=== PATIENT | female | born 1990 | race American Indian/Alaskan Native ===

== ENCOUNTER 2019-08-23 16:00 | Observation (INO) | payer MEDICAID ==
--- NOTE | 2019-08-23 16:22 | Emergency Department Report ---
Blank Doc - Documentation Documentation: 29-year-old female that presents with headache and HTN. Stated nor mal B/P at home is 116s/70s. This initial assessment/diagnostic orders/clinical plan/treatment(s) is/are subject to change based on patient's health status, clinical progression and re- assessment by fellow clinical providers in the ED. Further treatment and workup at subsequent clinical providers discretion. Patient/guardians urged not to elope from the ED as their condition may be serious if not clinically assessed and managed. Initial orders include: 1- Patient sent to MAIN ED for further evaluation and treatment 2- labs 3- UA
[2019-08-23] MEDS ORDERED: MAGNESIUM SULFATE 4 GM/100 ML BAG IV ONE ×3 (16:34→20:22)
[2019-08-23 16:35] LABS: Basophils # (Auto) 0.1 K/mm3 (0.0-0.1); Basophils % (Auto) 0.9 % (0.0-1.8); Eosinophils # (Auto) 0.2 K/mm3 (0.0-0.4); Eosinophils % (Auto) 2.3 % (0.0-4.3); Hematocrit 27.9 % (30.3-42.9); Hemoglobin 9.1 gm/dl (10.1-14.3); Lymphocytes # (Auto) 1.6 K/mm3 (1.2-5.4); Lymphocytes % (Auto) 16.6 % (13.4-35.0); Mean Corpuscular HGB Conc 33 % (30-34); Mean Corpuscular Volume 75 fl (79-97); Monocytes # (Auto) 0.6 K/mm3 (0.0-0.8); Monocytes % (Auto) 6.5 % (0.0-7.3); Platelet Count 225 K/mm3 (140-440); Red Blood Count 3.74 M/mm3 (3.65-5.03); Red Cell Distribution Width 19.3 % (13.2-15.2)
--- NOTE | 2019-08-23 16:39 | Emergency Department Report ---
ED Shortness of Breath HPI - General Chief Complaint: Dyspnea/Respdistress Stated Complaint: 3 DAYS AGO GAVE /CHEST PAIN Time Seen by Provider: 08/23/19 16:06 Source: patient Mode of arrival: Ambulatory Limitations: No Limitations - History of Present Illness Initial Comments: Patient is a 29-year-old female that presents emergency room with complaints of headache, blurred vision, shortness of breath, chest pain and bilateral lower extremity swelling. Patient states she is day 3. Patient states she had a baby 3 days ago at [place]. Patient states that towards the end of her she started having high blood pressure and leg swelling. Patient states she never took medications for her blood pressure during her . Patient states her chest pain is a 8 out of 10. Patient states it's worse with exertion and better with rest. Patient states her headache is an 8 out of 10. Patient states her headache is better with rest and worse with movement. Patient states her shortness of breath is better with rest and worse with exertion. MD Complaint: shortness of breath, chest pain -: Sudden - Related Data Allergies Allergy/AdvReac Type Severity Reaction Status Date / Time No Known Allergies Allergy Verified 08/23/19 16:36 ED Review of Systems ROS: Stated complaint: 3 DAYS AGO GAVE /CHEST PAIN Other details as noted in HPI Constitutional: denies: chills, fever Eyes: vision change. denies: eye pain, eye discharge ENT: denies: ear pain, throat pain Respiratory: shortness of breath. denies: cough, wheezing Cardiovascular: chest pain, edema. denies: palpitations Endocrine: no symptoms reported Gastrointestinal: denies: abdominal pain, nausea, diarrhea Genitourinary: denies: urgency, dysuria, discharge Musculoskeletal: denies: back pain, joint swelling, arthralgia Skin: denies: rash, lesions Neurological: headache. denies: weakness, paresthesias Psychiatric: denies: anxiety, depression Hematological/Lymphatic: denies: easy bleeding, easy bruising ED Past Medical Hx - Past Medical History Previous Medical History?: No - Surgical History Past Surgical History?: No - Family History Family history: no significant - Social History Smoking Status: Never Smoker Substance Use Type: None ED Physical Exam - General Limitations: No Limitations General appearance: alert, in no apparent distress - Head Head exam: Present: atraumatic, normocephalic - Eye Eye exam: Present: normal appearance, PERRL Pupils: Present: normal accommodation - ENT ENT exam: Present: mucous membranes moist - Neck Neck exam: Present: normal inspection - Respiratory Respiratory exam: Present: normal lung sounds bilaterally. Absent: respiratory distress - Cardiovascular Cardiovascular Exam: Present: regular rate, normal rhythm. Absent: systolic murmur, diastolic murmur, rubs, gallop - GI/Abdominal GI/Abdominal exam: Present: soft, normal bowel sounds - Extremities Exam Extremities exam: Present: normal inspection - Back Exam Back exam: Present: normal inspection - Neurological Exam Neurological exam: Present: alert, oriented X3 - Psychiatric Psychiatric exam: Present: normal affect, normal mood - Skin Skin exam: Present: warm, dry, intact, normal color. Absent: rash ED Course Vital Signs 08/23/19 08/23/19 08/23/19 16:22 17:01 18:00 Temperature 98.2 F Pulse Rate 79 68 62 Respiratory 18 22 13 Rate Blood Pressure 141/64 129/68 133/74 O2 Sat by Pulse 100 98 99 Oximetry 08/23/19 08/23/19 08/23/19 19:00 19:30 20:01 Temperature Pulse Rate 91 H 67 61 Respiratory 21 15 10 L Rate Blood Pressure 155/83 140/83 134/90 O2 Sat by Pulse 99 99 99 Oximetry 08/23/19 08/23/19 08/23/19 20:39 21:05 21:30 Temperature Pulse Rate 66 Respiratory 18 Rate Blood Pressure 134/90 134/90 131/78 O2 Sat by Pulse 90 100 Oximetry 08/23/19 22:00 Temperature Pulse Rate 92 H Respiratory 20 Rate Blood Pressure 138/65 O2 Sat by Pulse 100 Oximetry - Reevaluation(s) Reevaluation #1: Initial evaluation done. Based on patient's blood pressure and symptoms patient will be placed on mag for preeclampsia. 08/23/19 16:15 Reevaluation #2: pt states her headache is better. Patient states that her visual changes are better. Patient states her chest pain and shortness of breath improved. I discussed plan of care with patient. Patient agrees with plan of care. Patient will be admitted to the [facility] service. Patient agrees with admission. 08/23/19 18:30 - Consultations Consultation #1: CHRONOM[facility]ER AD[facility]ER consult. Dr. Garland has accepted the patient to be admitted to mother baby. [facility] orders place. 08/23/19 18:50 ED Medical Decision Making - Lab Data Result diagrams: 08/23/19 16:24 08/23/19 16:24 - EKG Data -: EKG Interpreted by Me EKG shows normal: sinus rhythm, axis, intervals, QRS complexes, ST-T waves Rate: normal - Radiology Data Radiology results: report reviewed, image reviewed interpreted by me: Negative chest x-ray. Head CT is negative for acute findings. - Medical Decision Making Patient is a 29-year-old female Emergency room with complaints of headache, blurry vision, chest pain, shortness of breath and elevated blood pressure. Patient states she is 3 days ago. Patient states she was preeclamptic during and her blood pressure and eclampsia symptoms have resolved with delivery. Patient states today she started having headache and chest pain and shortness of breath as well as noticed her blood pressure was higher than normal and blurry vision. Patient states she is not on a blood pressure medications. Patient states that her blood pressure was around 100. Patient placed on magnesium immediately for possible preeclampsia. Patient admitted to the [facility] service. Patient's labs unremarkable. Patient's head CT negative. Patient's chest x-ray negative. Patient's EKG negative. - Differential Diagnosis Preeclampsia. High blood pressure. Headache. Blurry vision. Critical Care Time: Yes Critical care time in (mins) excluding proc time.: 35 Critical care attestation.: If time is entered above; I have spent that time in minutes in the direct care of this critically ill patient, excluding procedure time. Critical Care Time: 35 minutes ED Disposition Clinical Impression: Preeclampsia in period, SOB (shortness of breath), Lower extremity edema, Blurred vision Chest pain Qualifiers: Chest pain type: unspecified Qualified Code(s): R07.9 - Chest pain, unspecified Headache Qualifiers: Headache type: unspecified Headache chronicity pattern: acute headache Intractability: not intractable Qualified Code(s): R51 - Headache Disposition: 09 OP ADMIT IP TO THIS HOSP Is pt being admited?: Yes Does the pt Need Aspirin: No Condition: Critical Time of Disposition: 18:57
[2019-08-23 16:50] LABS: Alanine Aminotransferase 12 units/L (7-56); Albumin 3.5 g/dL (3.9-5); BUN/Creatinine Ratio 10; Blood Urea Nitrogen 6 mg/dL (7-17); Calcium 8.8 mg/dL (8.4-10.2); Hemolysis Index 0
[2019-08-23 17:10] LABS: Creatine Kinase MB 1.3 ng/mL (0.0-4.0)
--- NOTE | 2019-08-23 17:11 | XRay Report ---
CHEST 1 VIEW 08/23/2019 4:46 PM INDICATION / CLINICAL INFORMATION: Shortness of breath and chest pain. COMPARISON: None available. FINDINGS: SUPPORT DEVICES: None. HEART / MEDIASTINUM: No significant abnormality. LUNGS / PLEURA: No significant pulmonary or pleural abnormality. No pneumothorax. ADDITIONAL FINDINGS: No significant additional findings. IMPRESSION: 1. No acute findings. Signer Name: Devonte Vines MD Signed: 08/23/2019 5:06 PM Workstation Name: [id number]
--- NOTE | 2019-08-23 18:08 | Cat Scan Report ---
CT head/brain wo con INDICATION / CLINICAL INFORMATION: 29 years Female; MAIN: lopez X 1 DAY POST . TECHNIQUE: Routine CT head without contrast. All CT scans at this location are performed using CT dos e reduction for ALARA by means of automated exposure control. COMPARISON: None. FINDINGS: BRAIN / INTRACRANIAL CONTENTS: No intracerebral hemorrhage or subarachnoid hemorrhage. Head matter wh ite matter junction is normal. I do not see patchy cortical/subcortical hypodensities in the parieto- occipital lobes are in the border zones (seen in the posterior reversible encephalopathy syndrome). D ural venous sinuses appear normal. Pituitary gland is normal. Visualized portions of the paranasal sinuses, mastoid air cells are normal. No acute hemorrhage, mass effect, midline shift, hydrocephalus, or acute, large territorial infarct. No chronic infarct or focal atrophy. Normal brain volume and ventricular/sulcal size for age. No sig nificant white matter abnormality. CRANIOCERVICAL JUNCTION: No significant abnormality. ORBITS: No significant abnormality of visualized orbits. SINUSES / MASTOIDS: No significant abnormality of the visualized paranasal sinuses or mastoid air tanya ls. ADDITIONAL FINDINGS: None. IMPRESSION: Normal nonenhanced CT scan of the brain. Signer Name: Mario Lilly MD Signed: 08/23/2019 6:04 PM Workstation Name: [email or web address]
[2019-08-23] MEDS ORDERED: ACETAMINOPHEN 325 MG TAB PO PRN (20:57)
[2019-08-23] MEDS ORDERED: diphenhydrAMINE 25 MG CAP PO PRN (20:57)
[2019-08-23] MEDS ORDERED: PROMETHAZINE 25 MG RECT SUPP PR PRN (20:57)
[2019-08-23] MEDS ORDERED: HYDROcodone/ACETAMINOPHEN 5-325 MG TAB PO PRN (20:57)
[2019-08-23] MEDS ORDERED: LANOLIN/ZINC/DIMETHICONE (LANSINOH) 7 GM TP PRN (20:57)
[2019-08-23] MEDS ORDERED: ONDANSETRON 4 MG/2 ML INJ IV PRN (20:57)
[2019-08-23] MEDS ORDERED: WITCH HAZEL/ GLYCERIN PAD TP PRN (20:57)
[2019-08-23] MEDS ORDERED: PROMETHAZINE 25 MG TAB PO PRN (20:57)
[2019-08-23] MEDS ORDERED: MAGNESIUM HYDROXIDE (MOM) ORAL LIQD UDC PO PRN (20:57)
[2019-08-23] MEDS ORDERED: IBUPROFEN 600 MG TAB PO SCH (21:00)
[2019-08-23] MEDS ORDERED: METOCLOPRAMIDE 10 MG/2 ML INJ IV PRN (21:03)
[2019-08-23] MEDS ORDERED: IBUPROFEN 600 MG TAB PO ONE (21:16)
--- NOTE | 2019-08-23 23:11 | Progress Note ---
Subjective - Subjective Date of service: 08/23/19 Interval history: Patient admitted for preeclampsia She wants to go home, I have indicated she would have to sign out AMA Preeclampsia/Eclampsia precautions discussed Patient to follow up in my office at [facility] on Saturday. Selena Garland MD Objective - Vital Signs Vital Signs: Vital Signs - 12hr 08/23/19 08/23/19 08/23/19 16:22 17:01 18:00 Temperature 98.2 F Pulse Rate 79 68 62 Respiratory 18 22 13 Rate Blood Pressure 141/64 129/68 133/74 O2 Sat by Pulse 100 98 99 Oximetry 08/23/19 08/23/19 08/23/19 19:00 19:30 20:01 Temperature Pulse Rate 91 H 67 61 Respiratory 21 15 10 L Rate Blood Pressure 155/83 140/83 134/90 O2 Sat by Pulse 99 99 99 Oximetry 08/23/19 08/23/19 08/23/19 20:39 21:05 21:30 Temperature Pulse Rate 66 Respiratory 18 Rate Blood Pressure 134/90 134/90 131/78 O2 Sat by Pulse 90 100 Oximetry 08/23/19 08/23/19 08/23/19 22:00 22:45 22:53 Temperature 98.2 F Pulse Rate 92 H 92 H 72 Respiratory 20 20 Rate Blood Pressure 138/65 118/56 O2 Sat by Pulse 100 100 Oximetry - Labs Labs: Abnormal Labs 08/23/19 08/23/19 16:24 16:24 Hgb 9.1 L Hct 27.9 L MCV 75 L MCH 24 L RDW 19.3 H Seg Neutrophils % 73.7 H Potassium 3.4 L BUN 6 L Creatinine 0.6 L Albumin 3.5 L Laboratory Results - last 24 hr 08/23/19 08/23/19 08/23/19 16:24 16:24 16:44 WBC 9.8 RBC 3.74 Hgb 9.1 L Hct 27.9 L MCV 75 L MCH 24 L MCHC 33 RDW 19.3 H Plt Count 225 Lymph % (Auto) 16.6 Starke % (Auto) 6.5 Eos % (Auto) 2.3 Baso % (Auto) 0.9 Lymph # 1.6 Starke # 0.6 Eos # 0.2 Baso # 0.1 Seg Neutrophils % 73.7 H Seg Neutrophils # 7.2 Sodium 141 Potassium 3.4 L Chloride 105.0 Carbon Dioxide 22 Anion Gap 17 BUN 6 L Creatinine 0.6 L Estimated GFR > 60 BUN/Creatinine Ratio 10 Glucose 89 Calcium 8.8 Total Bilirubin 0.20 AST 14 ALT 12 Alkaline Phosphatase 107 Total Creatine Kinase 74 CK-MB (CK-2) 1.3 CK-MB (CK-2) Rel Index 1.7 Troponin T < 0.010 NT-Pro-B Natriuret Pep Total Protein 6.4 Albumin 3.5 L Albumin/Globulin Ratio 1.2 08/23/19 16:44 WBC RBC Hgb Hct MCV MCH MCHC RDW Plt Count Lymph % (Auto) Starke % (Auto) Eos % (Auto) Baso % (Auto) Lymph # Starke # Eos # Baso # Seg Neutrophils % Seg Neutrophils # Sodium Potassium Chloride Carbon Dioxide Anion Gap BUN Creatinine Estimated GFR BUN/Creatinine Ratio Glucose Calcium Total Bilirubin AST ALT Alkaline Phosphatase Total Creatine Kinase CK-MB (CK-2) CK-MB (CK-2) Rel Index Troponin T NT-Pro-B Natriuret Pep 270.7 Total Protein Albumin Albumin/Globulin Ratio
--- NOTE | 2019-08-23 23:37 | History and Physical Report ---
History of Present Illness Date of examination: 08/23/19 Date of admission: 08/23/19 18:44 Chief complaint: Sent from ED for admission to L&D for preeclampsia. Orders have been put in by Dr. Garland. requests CNM to see patient for H&P. History of present illness: 29 year old was sent to L&D from ED due to elevated blood pressure and diagnosis of preeclampsia by ED doctor. Patient delivered her baby vaginally at [facility] on 08/19/19 (EDC was 08/17/19). Patient states she had a 7 lb. 13 oz. female infant with 1st degree lacerations which were repaired at the time of . Patient reports her lochia has been moderate to light since . She reports normal bowel and bladder function and normal appetite. She denies depression. Patient states she developed a headache with visual disturbance and chest pain/shortness of breath this evening and came in through the ED. In the ED she was diagnosed with preeclampsia and received Magnesium Sulfate; after that she was transferred to L&D. Orders have been put in by Dr. Garland. I went in to see patient and she was already signing out AMA right after she arrived on L&D unit. Patient denies headache, visual disturbance, nausea or vomiting, abdominal or epigastric pain at this time. Patient states the chest pain she felt in the ED has nearly resolved and is now 3/10 on pain scale and is only felt if she lies flat on her back. Patient denies shortness of breath; she denies leg pain. She reports swelling in both legs but denies any generalized edema. Patient is signing out AMA as I came in room to do her H&P. Advised patient re: risks of signing out AMA, warning signs to return for, and assured her that she can come back for care at any time. Advised her she needs to follow up with Dr. Garland this week in the office as she states she has already planned to do. Past History Past Medical History: other (heart murmur, obesity, recent at [facility] (08/19/19).) Past Surgical History: no surgical history MANAGER PRODUCE History: denies: chlamydia, gonorrhea, hepatitis B, hepatitis C, herpes, HIV, syphilis Family/Genetic History: stroke, other (aneurysm: several family members) Social history: lives with family, full code. denies: smoking, alcohol abuse, prescription drug abuse, IV drug use Medications and Allergies Allergies Allergy/AdvReac Type Severity Reaction Status Date / Time No Known Allergies Allergy Verified 08/23/19 16:36 Active Meds: Active Medications Acetaminophen (Tylenol) 650 mg PO Q4H PRN PRN Reason: Pain MILD(1-3)/Fever >100.5/[place] Acetaminophen/Hydrocodone Bitart (Goshen 5/325) 2 each PO Q6H PRN PRN Reason: Pain, Moderate (4-6) Bisacodyl (Dulcolax) 10 mg WV BID PRN PRN Reason: Constipation Diphenhydramine HCl (Benadryl) 25 mg PO Q6H PRN PRN Reason: Itching Ibuprofen (Ibuprofen) 600 mg PO Q6H SURYA Last Admin: 08/23/19 21:16 Dose: 600 mg Documented by: Magnesium Hydroxide (Milk Of Magnesia) 30 ml PO HS PRN PRN Reason: Constipation Metoclopramide HCl (Reglan) 10 mg IV Q6H PRN PRN Reason: Indigestion Multi-Ingredient Ointment (Lansinoh) 1 applic TP PRN PRN PRN Reason: Sore Nipples Ondansetron HCl (Zofran) 4 mg IV Q8H PRN PRN Reason: Nausea And Vomiting Promethazine HCl (Phenergan) 25 mg WV Q6H PRN PRN Reason: Nausea And Vomiting Promethazine HCl (Phenergan) 25 mg PO Q6H PRN PRN Reason: Nausea And Vomiting Sodium Chloride (Sodium Chloride Flush Syringe 10 Ml) 10 ml IV PRN NR Stop: 08/24/19 20:59 Witch Elissa/Glycerin (Tucks Pad) 1 each TP PRN PRN PRN Reason: Hemorrhoid/cleansing/soothing Review of Systems All systems: negative (chest pain, shortness of breath (resolved), headache (resolved), visual disturbance (resolved), bilateral lower extremity swelling) - Vital Signs Vital signs: Vital Signs Temp Pulse Resp BP Pulse Ox 98.2 F 79 18 141/64 100 08/23/19 16:22 08/23/19 16:22 08/23/19 16:22 08/23/19 16:22 08/23/19 16:22 Temp Pulse Resp BP Pulse Ox 98.2 F 72 20 118/56 100 08/23/19 22:45 08/23/19 22:53 08/23/19 22:45 08/23/19 22:53 08/23/19 22:45 - Physical Exam Cardiovascular: Regular rate, Normal S1, Normal S2, Other (murmur heard) Lungs: Positive: Clear to auscultation Abdomen: Positive: normal appearance, soft. Negative: distention, tenderness, guarding, rigidity Uterus: Positive: enlarged, other (fundus firm and midline; normal involution). Negative: tender Extremities: Positive: edema (mild edema of bilateral lower extremities, L=R, negative Wally's sign bilaterally). Negative: tenderness Results Result Diagrams: 08/23/19 16:24 08/23/19 16:24 Abnormal lab results 08/23/19 08/23/19 Range/Units 16:24 16:24 Hgb 9.1 L (10.1-14.3) gm/dl Hct 27.9 L (30.3-42.9) % MCV 75 L (79-97) fl MCH 24 L (28-32) pg RDW 19.3 H (13.2-15.2) % Seg Neutrophils % 73.7 H (40.0-70.0) % Potassium 3.4 L (3.6-5.0) mmol/L BUN 6 L (7-17) mg/dL Creatinine 0.6 L (0.7-1.2) mg/dL Albumin 3.5 L (3.9-5) g/dL All other labs normal. Assessment and Plan A: day 4 S/P vaginal at [facility]. BP elevation. Seen in ED and diagnosed with preeclampsia. Heart murmur. Patient signing out AMA upon arrival to L&D unit. P: Orders have been put in by Dr. Garland. Patient signed out AMA. Advised patient of risks of signing out AMA, warning signs, need for follow up. Advised patient that she is welcome to return anytime. Patient states she fully understands the risks she is taking by signing out AMA.
[2019-08-23 23:49] VITALS: BP 131/66
--- NOTE | 2019-08-24 06:53 | Discharge Summary ---
Providers - Providers Date of Admission: 08/23/19 18:44 Attending physician: JB FORBES MD 08/23/19 18:50 Consult to Mental Health [CONS] Routine Reason For Exam: depression s/p childbirth 08/20/19 Place consult to:: none Notified:: none Primary care physician: ANNE CHERRY MD Hospitalization Reason for admission: other ( preeclampsia) Procedure details: Patient was not discharged; she signed out against medical advice as soon as she arrived on L&D unit. Pertinent studies: Lab and other tests done in ED Hospital course: Patient signed out against medical advice as soon as she arrived in L&D from ED. Patient was not discharged. Condition at discharge: Stable Disposition: [id number] LEFT AGAINST MED ADVICE Plan - Provider Discharge Summary Additional instructions: Advised patient re: risks of signing herself out against medical advice. Advised her of warning signs to return for. Advised patient to go in to office for follow up with Dr. Forbes. Call your doctor immediately for: * Fever > 100.5 * Heavy vaginal bleeding ( >1 pad per hour) * Severe persistent headache * Shortness of breath * Reddened, hot, painful area to leg or breast - Follow up plan Follow up: PRIMARY MD DILIP [Primary Care Provider] - 48 Hours
== END 2019-08-24 | disposition left against medical advice (07) ==
LOC: ED 16:00 → 3A 18:44 → LD 21:24
PROVIDERS: ADMIT Obstetrics & Gynecology; ATTEND Obstetrics & Gynecology
DX: O14.95 Unspecified pre-eclampsia, complicating the puerperium (principal); O90.89 Other complications of the puerperium, not elsewhere classified; R03.0 Elevated blood-pressure reading, without diagnosis of hypertension; R01.1 Cardiac murmur, unspecified; E66.9 Obesity, unspecified; O99.89 Other specified diseases and conditions complicating pregnancy, childbirth and the puerperium; R06.02 Shortness of breath; R60.0 Localized edema; H53.8 Other visual disturbances; R07.89 Other chest pain; R51 Headache; Z79.899 Other long term (current) drug therapy; Z68.36 Body mass index [BMI] 36.0-36.9, adult
CPT/HCPCS: 36415; 70450; 71045; 80053; 82550; 82553; 83880; 84484; 85025; 93005; 93010; 96365; 96366; 96375; 99291; G0378; J2765; J3475; A6250

== ENCOUNTER 2019-12-10 14:57 | Emergency (ER) | payer SELFPAY ==
[2019-12-10 15:11] VITALS: BP 140/81
--- NOTE | 2019-12-10 15:26 | Emergency Department Report ---
Upper Respiratory HPI - HPI Chief Complaint: Headache Stated Complaint: FLU Time Seen by Provider: 12/10/19 15:07 Duration: 2 Days URI Symptoms: Rhinorrhea: Yes, Sore Throat: No, Ear Pain: No, Cough: No, Shortness of Breath: No, Sick Contacts: No, Unable to Take Fluids: No, Urine Output Abnormal: No, Listless Behavior: No Other History: This is a 29-year-old female nontoxic well in appearnce with no signs of distress presents with frontal sinus pain, body aches and rhinnorrhea x2 days. Patient denies any chest pain, cough, shortness of breathe, fever, chills, nausea, vomiting, headache, stiff neck, abdominal pain, numbness or tingling. Patient denies any recent travels, long car rides, or recent hospital stays. Denies any allergies or significant PMH. - Home Meds and Allergies Home Medications: Previous Rx's Medication Instructions Recorded Last Taken Type Amoxicillin/K Clav Tab [Augmentin 1 tab PO Q12HR #20 tab 12/10/19 Unknown Rx 875 mg] Naproxen 500 mg PO Q12H PRN #20 tablet 12/10/19 Unknown Rx Allergies/Adverse Reactions: Allergies Allergy/AdvReac Type Severity Reaction Status Date / Time No Known Allergies Allergy Verified 12/10/19 14:58 ED Review of Systems ROS: Stated complaint: FLU Other details as noted in HPI Constitutional: denies: chills, fever Eyes: denies: eye pain, eye discharge, vision change ENT: congestion. denies: ear pain, throat pain Respiratory: denies: cough, shortness of breath, wheezing Cardiovascular: denies: chest pain, palpitations Endocrine: no symptoms reported Gastrointestinal: denies: abdominal pain, nausea, diarrhea Genitourinary: denies: urgency, dysuria, discharge Musculoskeletal: denies: back pain, joint swelling, arthralgia Skin: denies: rash, lesions Neurological: denies: headache, weakness, paresthesias Psychiatric: denies: anxiety, depression Hematological/Lymphatic: denies: easy bleeding, easy bruising ED Past Medical Hx - Past Medical History Previous Medical History?: No - Surgical History Past Surgical History?: No - Social History Smoking Status: Never Smoker Substance Use Type: Alcohol - Medications Home Medications: Home Medications Medication Instructions Recorded Confirmed Last Taken Type Amoxicillin/K Clav Tab [Augmentin 1 tab PO Q12HR #20 tab 12/10/19 Unknown Rx 875 mg] Naproxen 500 mg PO Q12H PRN #20 tablet 12/10/19 Unknown Rx ED Bronchiolitis Physical Exam - Exam General: Vital signs noted. No distress. Alert and acting appropriately. Neurologic: Alert and oriented, no deficits. Musculoskeletal: Unremarkable. ED Physical Exam - General Limitations: No Limitations General appearance: alert, in no apparent distress - Head Head exam: Present: atraumatic, normocephalic - Expanded Head Exam Expanded Head exam: Present: other (positive frontal sinus tenderness) - Eye Eye exam: Present: normal appearance, PERRL, EOMI - ENT ENT exam: Present: normal exam, normal orophraynx - Neck Neck exam: Present: normal inspection, full ROM. Absent: tenderness, meningismus, lymphadenopathy - Respiratory Respiratory exam: Present: normal lung sounds bilaterally. Absent: respiratory distress, wheezes, rales, rhonchi, stridor, chest wall tenderness, accessory muscle use, decreased breath sounds, prolonged expiratory - Cardiovascular Cardiovascular Exam: Present: regular rate, normal rhythm, normal heart sounds. Absent: bradycardia, tachycardia, irregular rhythm, systolic murmur, diastolic murmur, rubs, gallop - Extremities Exam Extremities exam: Present: normal inspection, full ROM - Back Exam Back exam: Present: normal inspection, full ROM. Absent: tenderness, CVA tenderness (R), CVA tenderness (L), muscle spasm, paraspinal tenderness, vertebral tenderness, rash noted - Neurological Exam Neurological exam: Present: alert, oriented X3, normal gait - Psychiatric Psychiatric exam: Present: normal affect, normal mood - Skin Skin exam: Present: warm, dry, intact, normal color. Absent: rash ED Course Vital Signs 12/10/19 15:07 Temperature 98.6 F Pulse Rate 67 Respiratory 20 Rate Blood Pressure 140/81 O2 Sat by Pulse 96 Oximetry - Reevaluation(s) Reevaluation #1: 12/10/19 15:26 Patient is speaking in full sentences with no signs of distress noted. ED Medical Decision Making - Medical Decision Making 29-year-old female that presents with sinuitis. Patient is stable and was examined by me. Patient will be discharged with augmetin. Vital signs are stable. Patient was instructed to Follow-up with a primary care doctor in 3-5 days or if symptoms worsen and continue return to emergency room as soon as possible. At time of discharge, the patient does not seem toxic or ill in appearance. No acute signs of distress noted. Patient agrees to discharge treatment plan of care. No further questions noted by the patient. Critical care attestation.: If time is entered above; I have spent that time in minutes in the direct care of this critically ill patient, excluding procedure time. ED Disposition Clinical Impression: Sinusitis Qualifiers: Sinusitis location: frontal Chronicity: acute Recurrence: non-recurrent Qualified Code(s): J01.10 - Acute frontal sinusitis, unspecified Disposition: TO HOME OR SELFCARE Is pt being admited?: No Does the pt Need Aspirin: No Condition: Stable Instructions: Sinusitis (ED) Additional Instructions: Follow-up with a primary care doctor in 3-5 days or if symptoms worsen and continue return to the emergency department as soon as possible. Prescriptions: Amoxicillin/K Clav Tab [Augmentin 875 mg] 1 tab PO Q12HR #20 tab Naproxen 500 mg PO Q12H PRN #20 tablet PRN Reason: Pain, Moderate (4-6) Referrals: PRIMARY CAREMD [Referring] - 3-5 Days JENNIFER CUADRA MD [Staff Physician] - 3-5 Days [facility] [Outside] - 3-5 Days Forms: Work/School Release Form(ED)
== END 2019-12-10 15:53 | disposition home or self-care (01) ==
LOC: ED 14:57
DX: J32.9 Chronic sinusitis, unspecified (principal); Z79.2 Long term (current) use of antibiotics; Z79.899 Other long term (current) drug therapy
CPT/HCPCS: 99282

== ENCOUNTER 2019-12-15 14:29 | Emergency (ER) | payer SELFPAY | END 2019-12-15 14:30 | disposition left against medical advice (07) | LOC: ED 14:29 | DX: J11.1 Influenza due to unidentified influenza virus with other respiratory manifestations (principal); Z53.21 Procedure and treatment not carried out due to patient leaving prior to being seen by health care provider ==